=== PATIENT | male | born 1950 | race Caucasian/White ===

== ENCOUNTER 2016-11-30 15:21 | Emergency (ER) | payer MEDICARE ==
[~2016-11-30] VITALS: Ht 193 cm; Wt 120.2 kg
[~2016-11-30 15:21] MED LIST: ASPI-482 PO; CANA300T PO; CINN500C PO; EZET10TA3 PO; FURO-68 PO; INSU100I17 SQ; INSU300I SQ; LACT460C PO; LOSA50TA6 PO; METF10002 PO; METO25TA4 PO; MULT-245 PO; OMEG1CAP38 PO; OMEP40CA5 PO; OXYC-244 PO; OXYC15TA PO; POLY17PO5 PO; SIMV80TA3 PO; TACR100O2 TP; TAMS0.4C97 PO; TAZA30CR TP
[2016-11-30 15:35] VITALS: BP 166/99
[2016-11-30] MEDS ORDERED: IBUPROFEN 600 MG TABLET. PO ONE (16:15)
--- NOTE | 2016-11-30 16:17 | PHYS DOC ---
Past Medical History Past Medical History: No Pertinent History, Other Past Surgical History: Coronary Bypass Surgery, Other Additional Information: nonsmoker Alcohol Use: Heavy Drug Use: None Adult General Chief Complaint Chief Complaint: FOOT INJURY PAIN HPI HPI Patient is a 66 year old male who presents with atraumatic left foot pain and swelling starting today. He states that the pain is mainly in the heel on the plantar surface. He has a history of plantar fasciitis in the right foot, treated conservatively with rest and NSAIDs. He was visiting his mother in the hospital here today when he noticed the swelling. He applied ice and elevated the foot. He called his PCP and was advised to come to the ED for evaluation to rule out a DVT due to the swelling. He takes a baby aspirin but no other blood thinners. His PCP is Dr. Urrutia. Review of Systems Review of Systems Constitutional: Denies fever or chills. [] Musculoskeletal: Denies back pain or joint pain. Reports left heel pain and swelling. Integument: Denies rash or skin lesions. [] Neurologic: Denies focal weakness or sensory changes. [] Current Medications Current Medications Current Medications Medications (Trade) Dose Ordered Sig/Casey Start Time Stop Time Status Last Admin Dose Admin Ibuprofen (Motrin) 600 mg 1X ONCE 11/30/16 16:15 11/30/16 16:16 DC 11/30/16 16:15 600 MG Allergies Allergies Allergies Coded Allergies Type Severity Reaction Last Updated Verified No Known Medication Allergies Allergy Unknown 11/30/16 Yes ibuprofen Adverse Reaction Intermediate ULCER 05/24/16 Yes Physical Exam Physical Exam Constitutional: Well developed, well nourished, no acute distress, non-toxic appearance. [] HENT: Normocephalic, atraumatic, oropharynx moist. [] Eyes: PERRLA, EOMI, conjunctiva normal, no discharge. [] Skin: Warm, dry, no erythema, no rash. There is no erythema or warmth of the left foot, ankle, or lower leg. There are no external signs of trauma. Extremities: Left heel plantar tenderness, ROM intact, 1+ LLE edema. 2+ DP and PT pulses. Less than 2 second capillary refill in the toes. Light touch sensation intact in the toes. Neurologic: Alert and oriented X 3, normal motor function, normal sensory function, no focal deficits noted. [] Psychologic: Affect normal, judgement normal, mood normal. [] Current Patient Data Vital Signs Vital Signs Date Time Temp Pulse Resp B/P Pulse Ox O2 Delivery O2 Flow Rate FiO2 11/30/16 15:35 98.5 81 18 97 Room Air 98.5 EKG EKG [] Radiology/Procedures Radiology/Procedures REASON: left foot swelling and pain PROCEDURE: VENOUS LOWER EXTREMITY LEFT Left lower extremity venous ultrasound, 11/30/2016 : History: Left foot pain and swelling Duplex evaluation including grayscale, color flow and spectral Doppler analysis was performed. The femoral and popliteal veins show no filling defects to suggest DVT. The visualized calf veins are unremarkable. IMPRESSION: There is no sonographic evidence of deep vein thrombosis in the left lower extremity Course & Med Decision Making Course & Med Decision Making Pertinent Labs and Imaging studies reviewed. (See chart for details) [] Dragon Disclaimer Dragon Disclaimer This electronic medical record was generated, in whole or in part, using a voice recognition dictation system. Departure Departure Impression: Primary Impression: Pain of left heel Disposition: HOME, SELF-CARE Condition: STABLE Referrals: SLAVA URRUTIA MD (PCP) Patient Instructions: Plantar Fasciitis Additional Instructions: There was no blood clot seen on your ultrasound today. Your pain and swelling are likely due to inflammation of the plantar fascia. Please take the prescribed medications as directed. Do not drive or operate heavy machinery while taking narcotic medications. Please follow-up with your primary care doctor within the next week. Return to the emergency department if you have any new or concerning symptoms. Scripts Ibuprofen 600 Mg [id number] Mg PO PRN Q6HRS PRN INFLAMMATION #20 TAB Prov:WESTON BUCIO 11/30/16 WESTON BUCIO Nov 30, 2016 16:17
--- NOTE | 2016-11-30 17:07 | RAD ---
Left lower extremity venous ultrasound, 11/30/2016 : History: Left foot pain and swelling Duplex evaluation including grayscale, color flow and spectral Doppler analysis was performed. The femoral and popliteal veins show no filling defects to suggest DVT. The visualized calf veins are unremarkable. IMPRESSION: There is no sonographic evidence of deep vein thrombosis in the left lower extremity
[2016-11-30] MEDS ORDERED: HYDR-971 PO (17:14)
[2016-11-30] MEDS ORDERED: IBUP-1007 PO (17:14)
== END 2016-11-30 17:35 | disposition home or self-care (01) ==
LOC: ER 15:21
DX: M79.672 Pain in left foot (principal); R22.42 Localized swelling, mass and lump, left lower limb; F10.10 Alcohol abuse, uncomplicated; Z95.1 Presence of aortocoronary bypass graft; Z88.6 Allergy status to analgesic agent
CPT/HCPCS: 93971; 99284-25

== ENCOUNTER → 2017-03-18 | Outpatient (CLI) | payer MEDICARE ==
[~2017-03-18] MED LIST changes: -CINN500C PO; +CINN500C2 PO; +EZET10TA18 PO; -EZET10TA3 PO; +HYDR-971 PO; +IBUP-1007 PO; +METF-620 PO; -METF10002 PO; -OXYC-244 PO; +OXYC-327 PO; +POLY17PO29 PO; -POLY17PO5 PO; +ZOLPIDEM 5 MG TABLET. PO ONE
--- NOTE | 2017-03-28 12:37 | PDOC4 ---
PROCEDURE Procedure POLYSOMNOGRAPHY REPORT Type of Study: Diagnostic Date of Study: 03/18/2017 Referring Physician: Dr Cummings BMI: 33 [place] sleepiness scale: 6 SLEEP PARAMETERS Sleep latency: 12 min Rem latency: 174 min Total bed time: 416 min Total sleep time : 340 min Sleep Efficiency: 82% SLEEP STAGES: Stage I: 23% Stage II: 61% SWS: 6% REM: 10% EKG NSR Average HR 72/min Arrythmias: None OXIMETRY DATA Mean saturations: 94% Minimum saturations: 88% Percent saturations <90: 0.1% PLMS PLM Index: 41/hr PLM Arousal Index: 3/hr RESPIRATORY DATA Central Apneas:1 Obstructive Apneas: 5 Mixed: 14 Hypopneas: 11 Total AHI: 6/hr Supine AHI:16/hr REM AHI: 11/hr IMPRESSION 1. Mild ALESSIA with moderate increase in supine sleep 2. Severe PLM 3. No clinically significant hypoxia RECOMMENDATIONS 1. CPAP not indicated at present 2. Weight loss is advised 3. Avoid supine sleep 4. Avoid OFFICE SPECIALIST depressants CATRACHO BRADLEY MD Mar 28, 2017 12:37
== END | disposition home or self-care (01) ==
LOC: RT 18:51
PROVIDERS: ATTEND Internal Medicine
DX: G47.30 Sleep apnea, unspecified (principal)
CPT/HCPCS: 95810

== ENCOUNTER → 2018-09-11 | Outpatient (CLI) | payer MEDICARE ==
[~2018-09-11] MED LIST changes: +HYDR-3164 PO; -HYDR-971 PO; +LOSA-73 PO; -LOSA50TA6 PO; -METF-620 PO; +METF10007 PO; -OXYC-327 PO; +OXYC1TAB19 PO; +REGADENOSON 0.4 MG/5 ML DISP.SYRIN. IV ONE; +SIMV80TA17 PO; -SIMV80TA3 PO; -ZOLPIDEM 5 MG TABLET. PO ONE
--- NOTE | 2018-09-11 10:24 | CARD ---
MR#: [id number] Date of Study: 09/11/2018 Ordering Physician: BUD GOMZE, Referring Physician: BUD GOMEZ, Tech: Rosibel Corrales KIARA APPROVED REPORT EXAM: Two-dimensional and M-mode echocardiogram with Doppler and color Doppler. Other Information Quality : AverageHR: 75bpm Rhythm : NSR INDICATION Shortness of breath 2D DIMENSIONS RVDd3.1 (2.9-3.5cm)Left Atrium(2D)4.1 (1.6-4.0cm) IVSd1.3 (0.7-1.1cm)Aortic Root(2D)3.8 (2.0-3.7cm) LVDd4.5 (3.9-5.9cm)LVOT Diameter2.3 (1.8-2.4cm) PWd1.4 (0.7-1.1cm)LVDs2.9 (2.5-4.0cm) FS (%) 36.1 %SV62.4 ml LVEF(%)65.8 (>50%) M-Mode DIMENSIONS Left Atrium(MM)4.57 (2.5-4.0cm)Aortic Root3.96 (2.2-3.7cm) Aortic Valve AoV Peak Eleazar.115.3cm/sAoV VTI23.0cm AO Peak GR.5.3mmHgLVOT Peak Eleazar.80.6cm/s AO Mean GR.3mmHgAVA (VMAX)2.86cm2 JERRY (VTI)2.90cm2 Mitral Valve MV E Iqtvqjdp00.8cm/sMV DECEL [id number] MV A Bpsertem95.9cm/sE/A Ratio0.7 MV A Wbrqezqv116zs Pulmonary Valve PV Peak Txubsdit349.8cm/s LEFT VENTRICLE The left ventricle is normal size. There is mild to moderate concentric left ventricular hypertrophy. The left ventricular systolic function is normal. The Ejection Fraction is 65%. There is normal LV s egmental wall motion. Transmitral Doppler flow pattern is Grade I-abnormal relaxation pattern. RIGHT VENTRICLE The right ventricle is normal size. There is normal right ventricular wall thickness. The right ventr icular systolic function is normal. ATRIA The left atrium is mildly dilated. The right atrium is mildly dilated. The interatrial septum is inta ct with no evidence for an atrial septal defect or patent foramen ovale as noted on 2-D or Doppler im aging. AORTIC VALVE The aortic valve is trileaflet. The aortic valve is normal in structure and function. Doppler and Col or Flow revealed no significant aortic regurgitation. There is no significant aortic valvular stenosi s. MITRAL VALVE The mitral valve is normal in structure and function. There is no evidence of mitral valve prolapse. There is no mitral valve stenosis. Doppler and Color Flow revealed no mitral valve regurgitation note d. TRICUSPID VALVE The tricuspid valve is normal in structure and function. Doppler and Color Flow revealed trace tricus pid valve regurgitation. There is no tricuspid valve prolapse or vegetation. There is no tricuspid va lve stenosis. PULMONIC VALVE Pulmonic valve not well visualized. GREAT VESSELS The aortic root is mildly enlarged. The ascending aorta is Mildly dilated at 4.1cm. The IVC is normal in size and collapses >50% with inspiration. PERICARDIAL EFFUSION There is no evidence of significant pericardial effusion. Critical Notification Critical Value: No <Conclusion> The left ventricular systolic function is normal. The Ejection Fraction is 65%. There is normal LV segmental wall motion. Transmitral Doppler flow pattern is Grade I-abnormal relaxation pattern. Trace tricuspid valve regurgitation. There is no evidence of significant pericardial effusion. Signed by : Jose J Gray, Electronically Approved : 09/11/2018 10:22:59
== END | disposition home or self-care (01) ==
LOC: NM 09:39
PROVIDERS: ATTEND Internal Medicine Cardiovascular Disease
DX: R06.02 Shortness of breath (principal); I25.10 Atherosclerotic heart disease of native coronary artery without angina pectoris
CPT/HCPCS: 93306; J2785

== ENCOUNTER → 2019-05-25 | Outpatient (CLI) | payer MEDICARE ==
[~2019-05-25] MED LIST changes: -REGADENOSON 0.4 MG/5 ML DISP.SYRIN. IV ONE
--- NOTE | 2019-05-25 10:39 | KCIC ---
EXAM: Chest, 2 views. HISTORY: Psoriasis drug therapy. COMPARISON: 06/11/2016. FINDINGS: 2 views of chest are obtained. There is no infiltrate, pleural effusion or pneumothorax. The heart is normal in size. There are median sternotomy wires. IMPRESSION: No acute pulmonary finding. Electronically signed by: Lexi Bowles MD (05/25/2019 10:36 AM) [facility]
== END | disposition home or self-care (01) ==
LOC: KCIC 10:04
PROVIDERS: ATTEND Registered Nurse
DX: L40.0 Psoriasis vulgaris (principal); Z79.899 Other long term (current) drug therapy
CPT/HCPCS: 71046

== ENCOUNTER → 2020-03-24 | Outpatient (CLI) | payer MEDICARE ==
[~2020-03-24] MED LIST changes: -EZET10TA18 PO; +EZET10TA20 PO; +OMEP40CA45 PO; -OMEP40CA5 PO; -OXYC15TA PO; +OXYC15TA3 PO; +REGADENOSON 0.4 MG/5 ML DISP.SYRIN. IV ONE
--- NOTE | 2020-03-24 14:22 | RAD ---
MR#: [id number] Date of Study: 03/24/2020 Ordering Physician: BUD GOMEZ, Referring Physician: LIZ TAYLOR Tech: Lexi Lubin RT (R) (N) APPROVED REPORT Test Type: Pharmacological Stress Nurse/Tech: Mariaa MOSS Test Indications: CAD, Chest Pain Cardiac History: CABG, HTN, See EMR Medications: ASA 81mg, See EMR Medical History: DM, See EMR Resting ECG: SR Resting Heart Rate: 70 bpm Resting Blood Pressure: 152/82mmHg Pretest Chest Pain: No chest pain Nurse/Tech Notes Lungs CTA, Heart tones regular. Consent: The procedure was explained to the patient in lay terms. Informed consent was witnessed. Robbie eout was entered into [employer]. History and Stress Test performed by BRENDEN Lau, JOE (R) (N) Pharm. Details Pharmacologic stress testing was performed using 0.4mg per 5ml of regadenoson given intravenously ove r 7-10 seconds. Stress Symptoms Dyspnea POST EXERCISE Reason for Termination: Infusion complete Max HR: 92 bpm Max Blood Pressure: 152/60mmHg Blood Pressure response to exercise: Normal blood pressure response during stress. Heart Rate response to exercise: wnl Chest Pain: No. Arrhythmia: No. ST Change: No. INTERPRETATION Stress EKG Conclusion: Baseline EKG showed sinus rhythm. No ischemic changes at peak stress. No arr hythmias. Imaging Protocol IMAGE PROTOCOL: Rest Tc-99m/stress Tc-99m 1 day Rest: Stress: Viability: Radiopharm.Tc99m TwdfgobgzEr18x Sestamibi Czod81jXt 33mCi Duration 15min. 10min. Img Date 03/24/2020 03/24/2020 Inj-Img Phef59ayt. 60min. Rest Admin Site:IV - Left HandAdministrator:BRENDEN Lau ARRT (R)(N) Stress Admin Site: IV - Left HandAdministrator: BRENDEN Lau ARRT (R)(N) STRESS DATA End Diast. Vol.96.0mlLVEDV index BSA37.0ml End Syst. Vol.25.0mlLVESV index BSA10.0ml Myocardial Idgd675.0gEject. Khkxeast15.0% Stress Scores Regional WT1.00Summed WT17.00 Regional WM0.00Summed WM5.00 Study quality was good. Left Ventricular size was Normal at Rest and Stress. Lung uptake was . Left Ventricular ejection fraction is 71%. The rest and stress images show normal perfusion, normal contraction and thickening. LV Perf. Quant 17 Seg. SSS0.00 17 Seg. SRS2.00 17 Seg. SDS0.00 Stress Defect Extent (% LAD)0.00Rest Defect Extent (% LAD)0.00Rev. Defect Extent (% LAD)0.00 Stress Defect Extent (% LCX) 0.00Rest Defect Extent (% LCX)27.50Rev. Defect Extent (% LCX)0.00 Stress Defect Extent (% RCA)0.00Rest Defect Extent (% RCA)0.00Rev. Defect Extent (% RCA)0.00 Stress Defect Extent (% CARLTON)0.00Rest Defect Extent (% CARLTON)4.80Rev. Defect Extent (% CARLTON)0.00 Conclusion 1. Regadenoson cardioisotope stress test did not show any evidence of ischemia or infarct. 2. Normal left ventricular systolic function with ejection fraction calculated at 71%. 3. Low risk for cardiac events. Signed by : Jose J Gray, Electronically Approved : 03/24/2020 14:22:12
== END | disposition home or self-care (01) ==
LOC: NM 10:46
PROVIDERS: ATTEND Internal Medicine Cardiovascular Disease
DX: R07.9 Chest pain, unspecified (principal)
CPT/HCPCS: 78452; 93017; A9500; J2785

== ENCOUNTER → 2021-03-22 | Outpatient (CLI) | payer MEDICARE ==
[~2021-03-22] MED LIST changes: -OMEP40CA45 PO; +OMEP40CA7 PO; -REGADENOSON 0.4 MG/5 ML DISP.SYRIN. IV ONE
--- NOTE | 2021-03-22 14:30 | KCIC ---
XR CHEST 2V History: Reason: PSORIASIS VULGARIS, DETENTION USE DRUG THERAPY Comparison: Two-view chest May 25, 2019. Findings: There are stable CABG changes. Atherosclerotic aortic arch. The cardiac size is normal. Pulmonary vas culature is normal. The lungs are clear. No pleural effusion or pneumothorax is seen. There is no acu te bone abnormality.. Degenerative endplate spurring of the thoracic spine. IMPRESSION: No acute cardiopulmonary process. Electronically signed by: Kranthi Overton MD (03/22/2021 2:27 PM) [facility]
== END ==
LOC: KCIC 09:43
PROVIDERS: ATTEND Registered Nurse
DX: I70.0 Atherosclerosis of aorta (principal); L40.0 Psoriasis vulgaris; Q25.49 Other congenital malformations of aorta
CPT/HCPCS: 71046

== ENCOUNTER 2021-10-01 17:58 | Emergency (ER) | payer MEDICARE ==
[~2021-10-01] VITALS: Ht 182.9 cm; Wt 100.0 kg
[2021-10-01] MEDS ORDERED: MULTIVIT INFUSN,ADULT 4,VIT K 10 ML, THIAMINE INJ 100 MG, FOLIC ACID INJ 1 MG in IV NOR... IV ONE (19:00)
[2021-10-01 19:20] LABS: BASO % 1 % (0-3); EOS # 0.1 x10^3/uL (0.0-0.7); EOS % 1 % (0-3); HEMATOCRIT 43.8 % (39.0-53.0); LYMPH # 1.1 x10^3/uL (1.0-4.8); LYMPH % 11 % (24-48); MEAN CORPUSCULAR HEMOGLOBIN 32 pg (25-35); MEAN CORPUSCULAR HGB CONC 34 g/dL (31-37); MEAN CORPUSCULAR VOLUME 93 fL (79-100); MONO # 1.2 x10^3/uL (0.0-1.1); MONO % 11 % (0-9); NEUT # 7.9 x10^3/uL (1.8-7.7); NEUT % 77 % (31-73); PLATELET COUNT 144 x10^3/uL (140-400); RED BLOOD COUNT 4.69 x10^6/uL (4.30-5.70); RED CELL DISTRIBUTION WIDTH 13.5 % (11.5-14.5); WHITE BLOOD COUNT 10.3 x10^3/uL (4.0-11.0)
[2021-10-01 19:32] LABS: CALCIUM 8.2 mg/dL (8.5-10.1); CREATININE 1.3 mg/dL (0.7-1.3); GFR 54.4; POTASSIUM 3.4 mmol/L (3.5-5.1)
[2021-10-01 19:38] LABS: ALBUMIN 3.1 g/dL (3.4-5.0); ALBUMIN/GLOBULIN RATIO 0.8 (1.0-1.7); TOTAL BILIRUBIN 0.9 mg/dL (0.2-1.0); TOTAL PROTEIN 6.9 g/dL (6.4-8.2)
--- NOTE | 2021-10-01 21:56 | PHYS DOC ---
Past Medical History Past Medical History: Arthritis, Hypertension, Other Additional Past Medical Histor: PLANTAR FASCIIITIS, PSORIASIS,ETOH ABUSE Past Surgical History: Coronary Bypass Surgery, Other Additional Past Surgical Histo: TRIPLE BYPASS Smoking Status: Unknown if ever smoked Alcohol Use: Heavy (12 beers/day) Drug Use: None General Adult EDM: Chief Complaint: ALCOHOL INTOXICATION HPI: HPI: Patient is a 71 year old male who presents for alcohol intoxication. Per EMS, patient was drinking earlier today and his friends tried to take him home, but the patient couldn't get into his house so his friends called 911. Patient states he was drinking liquor but does not remember how much he drank today. He states he normally drinks at least 12 beers a day. He denies any other substance use today including tobacco or recreational drugs. He denies having any pain. History is otherwise limited by patient's altered mental status secondary to al cohol intoxication. Review of Systems: Review of Systems: Constitutional: Denies fever or chills Respiratory: Denies cough or shortness of breath Cardiovascular: Denies chest pain or palpitations GI: Denies abdominal pain, nausea, or vomiting Musculoskeletal: Denies back pain or joint pain Neurologic: Denies headache Review of systems otherwise limited secondary to altered mental status. Heart Score: C/O Chest Pain: N/A Current Medications: Current Medications Medications (Trade) Dose Ordered Sig/Casey Start Time Stop Time Status Last Admin Dose Admin Multivitamins 10 ml/Thiamine HCl 100 mg/Folic Acid 1 mg/Sodium Chloride 1,011.2 ml @ 1,000 mls/ hr 1X ONCE 10/01/21 19:00 10/01/21 20:00 ME Allergies: Allergies: Allergies Coded Allergies Type Severity Reaction Last Updated Verified No Known Medication Allergies Allergy Unknown 11/30/16 Yes ibuprofen Adverse Reaction Intermediate ULCER 05/24/16 Yes Physical Exam: PE: Constitutional: No acute distress, decreased wakefulness HENT: Normocephalic, atraumatic Eyes: Conjunctiva normal, no discharge Neck: Normal range of motion, supple Lungs & Thorax: Lungs CTAB, No respiratory distress, equal chest rise and fall Abdomen: Soft, no tenderness Skin: Warm, dry, no erythema, no rash Extremities: No tenderness, no edema Neurologic: Alert and oriented to person only, no focal deficits noted Psychologic: Affect normal, judgment altered secondary to alcohol intoxication Current Patient Data: Labs: Laboratory Tests Test 10/01/21 19:13 White Blood Count 10.3 x10^3/uL (4.0-11.0) Red Blood Count 4.69 x10^6/uL (4.30-5.70) Hemoglobin 15.0 g/dL (13.0-17.5) Hematocrit 43.8 % (39.0-53.0) Mean Corpuscular Volume 93 fL (79-100) Mean Corpuscular Hemoglobin 32 pg (25-35) Mean Corpuscular Hemoglobin Concent 34 g/dL (31-37) Red Cell Distribution Width 13.5 % (11.5-14.5) Platelet Count 144 x10^3/uL (140-400) Neutrophils (%) (Auto) 77 % (31-73) H Lymphocytes (%) (Auto) 11 % (24-48) L Monocytes (%) (Auto) 11 % (0-9) H Eosinophils (%) (Auto) 1 % (0-3) Basophils (%) (Auto) 1 % (0-3) Neutrophils # (Auto) 7.9 x10^3/uL (1.8-7.7) H Lymphocytes # (Auto) 1.1 x10^3/uL (1.0-4.8) Monocytes # (Auto) 1.2 x10^3/uL (0.0-1.1) H Eosinophils # (Auto) 0.1 x10^3/uL (0.0-0.7) Basophils # (Auto) 0.0 x10^3/uL (0.0-0.2) Sodium Level 133 mmol/L (136-145) L Potassium Level 3.4 mmol/L (3.5-5.1) L Chloride Level 95 mmol/L (98-107) L Carbon Dioxide Level 16 mmol/L (21-32) L Anion Gap 22 (6-14) H Blood Urea Nitrogen 22 mg/dL (8-26) Creatinine 1.3 mg/dL (0.7-1.3) Estimated GFR (Cockcroft-Gault) 54.4 BUN/Creatinine Ratio 17 (6-20) Glucose Level 130 mg/dL (70-99) H Calcium Level 8.2 mg/dL (8.5-10.1) L Magnesium Level 2.0 mg/dL (1.8-2.4) Total Bilirubin 0.9 mg/dL (0.2-1.0) Aspartate Amino Transferase (AST) 17 U/L (15-37) Alanine Aminotransferase (ALT) 34 U/L (16-63) Alkaline Phosphatase 92 U/L (46-116) Total Protein 6.9 g/dL (6.4-8.2) Albumin 3.1 g/dL (3.4-5.0) L Albumin/Globulin Ratio 0.8 (1.0-1.7) L Lipase 115 U/L (73-393) Ethyl Alcohol Level 261 mg/dL (0-10) H Laboratory Tests 10/01/21 19:13 Laboratory Tests 10/01/21 19:13 Vital Signs: Vital Signs Date Time Temp Pulse Resp B/P (MAP) Pulse Ox O2 Delivery O2 Flow Rate FiO2 10/01/21 17:58 97.4 74 18 180/76 (110) 95 Room Air 97.4 EKG: EKG: [] Radiology/Procedures: Radiology/Procedures: [] Course & Med Decision Making: Course & Med Decision Making Pertinent Labs and Imaging studies reviewed. (See chart for details) Patient presented for alcohol intoxication. CMP showed low electrolytes with an elevated anion gap. Ethanol level was 261. Lipase was WNL. Multivitamin infusion and saline were given. 2330: Patient pulled out IV and stated he wanted to go home. He said he would be able to get into his house and that he would arrange for transportation home. Patient's mental status was improved. [] Dragon Disclaimer: Dragon Disclaimer: This electronic medical record was generated, in whole or in part, using a voice recognition dictation system. Departure Departure Impression: Primary Impression: Alcohol intoxication Qualified Codes: F10.920 - Alcohol use, unspecified with intoxication, uncomplicated Disposition: 01 HOME / SELF CARE / HOMELESS Condition: STABLE Referrals: SLAVA URRUTIA MD (PCP) Patient Instructions: Alcohol Intoxication, [id number] Additional Instructions: Please call [facility] at to seek help for your alcohol abuse. SAM SAUNDERS DO Oct 01, 2021 21:56
[2021-10-01 23:07] VITALS: BP 146/75
== END 2021-10-02 00:01 | disposition home or self-care (01) ==
LOC: ER 17:58
DX: F10.129 Alcohol abuse with intoxication, unspecified (principal); Y90.8 Blood alcohol level of 240 mg/100 ml or more; I10 Essential (primary) hypertension; Z95.1 Presence of aortocoronary bypass graft; Z88.8 Allergy status to other drugs, medicaments and biological substances
CPT/HCPCS: 36415; 80053; 83690; 83735; 85025; 96365; 99285; G0480; J3411; J3490; J7030